=== PATIENT | male | born 1980 ===

== ENCOUNTER → 2019-08-16 13:08 | Outpatient (CLI) | payer OTHER | END | disposition home or self-care (01) | LOC: LAB 13:08 | DX: N20.0 Calculus of kidney (principal) ==

== ENCOUNTER 2019-08-17 11:34 | Outpatient (CLI) | payer OTHER | END 2019-08-17 11:36 | disposition home or self-care (01) | LOC: SONOGRAMA 11:34 | DX: N20.0 Calculus of kidney (principal) ==